=== PATIENT | female | born 1995 | race Hispanic/Latino ===

== ENCOUNTER 2018-07-31 18:58 | Emergency (ER) | payer MEDICAID ==
[2018-07-31] MEDS ORDERED: SODIUM CHLORIDE 0.9% 1000ML 1,000 ML IV ONE (19:25)
[2018-07-31 19:30] LABS: BASOPHILS % (AUTO) 0.7 % (0.0-5.0); EOSINOPHILS % (AUTO) 2.6 % (0.0-8.0); HEMATOCRIT 45.2 % (36-48); LYMPHOCYTES % (AUTO) 15.6 % (21.0-51.0); MEAN CORPUSCULAR HGB CONC 33.3 g/dL (32.0-36.0); MONOCYTES % (AUTO) 2.7 % (3.0-13.0); NEUTROPHILS % (AUTO) 78.4 % (40.0-77.0); PLATELET COUNT (AUTO) 311 K/uL (130-400); RED BLOOD CELL COUNT(AUTO) 5.02 MIL/uL (4.00-5.50); RED CELL DISTRIBUTION WIDTH 13.4 % (11.0-15.5); WHITE BLOOD COUNT (AUTO) 17.6 K/uL (4.8-10.8)
[2018-07-31 20:45] LABS: APPEARANCE,URINE Turbid (CLEAR); BILIRUBIN,URINE Negative (NEGATIVE); COLOR,URINE Yellow (YELLOW); GLUCOSE, URINE (UA) Negative (NEGATIVE); KETONES,URINE Negative (NEGATIVE); LEUKOCYTE ESTERASE ,URINE Negative (NEGATIVE); NITRATE,URINE Negative (NEGATIVE); OCCULT BLOOD,URINE Large (NEGATIVE); PH,URINE 8.5 (5.0-8.0); PROTEIN,URINE Negative (NEGATIVE); UROBILINOGEN,URINE 0.2 mg/dL (0.2-1.0)
[2018-07-31 21:24] LABS: AMORPHOUS SEDIMENT,UR Moderate /LPF (None Seen); BACTERIA,URINE Few /HPF (None Seen); RBC,URINE None Seen /HPF (0-1); SQUAMOUS EPITHELIAL CELL,UR None Seen /HPF (0-2); WBC,URINE 0-1 /HPF (0-1)
== END 2018-07-31 21:08 | disposition home or self-care (01) ==
LOC: EDH 18:58
DX: O20.0 Threatened abortion (principal); Z3A.01 Less than 8 weeks gestation of pregnancy
CPT/HCPCS: 36415; 76817; 81001; 84702; 85025; 99284; J7030

== ENCOUNTER 2018-10-09 13:02 | Emergency (ER) | payer MEDICAID ==
[2018-10-09] MEDS ORDERED: ACETAMINOPHEN 325 MG TAB ONE (14:17)
[2018-10-09 15:24] LABS: APPEARANCE,URINE Cloudy (CLEAR); BILIRUBIN,URINE Negative (NEGATIVE); COLOR,URINE Yellow (YELLOW); GLUCOSE, URINE (UA) Negative (NEGATIVE); KETONES,URINE >=80 mg/dL (NEGATIVE); LEUKOCYTE ESTERASE ,URINE Moderate (NEGATIVE); NITRATE,URINE Negative (NEGATIVE); OCCULT BLOOD,URINE Trace (NEGATIVE); PH,URINE 5.5 (5.0-8.0); PROTEIN,URINE Negative (NEGATIVE); UROBILINOGEN,URINE 0.2 mg/dL (0.2-1.0)
[2018-10-09 15:40] LABS: BACTERIA,URINE Rare /HPF (None Seen); MUCUS,URINE Moderate LPF (None Seen)
== END 2018-10-09 15:41 | disposition home or self-care (01) ==
LOC: EDH 13:02
DX: O23.42 Unspecified infection of urinary tract in pregnancy, second trimester (principal); R10.2 Pelvic and perineal pain; Z3A.17 17 weeks gestation of pregnancy
CPT/HCPCS: 81001

== ENCOUNTER 2019-03-12 10:59 | Inpatient (IN) | payer MEDICAID | END 2019-03-15 14:10 | disposition home or self-care (01) | LOC: LDH 10:59 → WSH 03-13 09:21 | PROC: 10E0XZZ Delivery of Products of Conception, External Approach (ICD-10-PCS; principal; ~2019-03-12) | DX: O80 Encounter for full-term uncomplicated delivery (principal); Z37.0 Single live birth; Z3A.00 Weeks of gestation of pregnancy not specified ==

== ENCOUNTER 2019-09-14 17:06 | Emergency (ER) | payer MEDICAID ==
[2019-09-14] MEDS ORDERED: SODIUM CHLORIDE 0.9% 1000ML 1,000 ML IV ONE (17:33)
[2019-09-14 17:42] LABS: BASOPHILS % (AUTO) 0.3 % (0.0-5.0); HEMATOCRIT 38.9 % (36-48); LYMPHOCYTES % (AUTO) 19.3 % (21.0-51.0); MEAN CORPUSCULAR HEMOGLOBIN 29.6 pg (27.0-33.0); MEAN CORPUSCULAR HGB CONC 34.4 g/dL (32.0-36.0); MEAN CORPUSCULAR VOLUME 86.1 fL (79-99); NEUTROPHILS % (AUTO) 72.9 % (40.0-77.0); PLATELET COUNT (AUTO) 302 K/uL (130-400); RED BLOOD CELL COUNT(AUTO) 4.52 MIL/uL (4.00-5.50); RED CELL DISTRIBUTION WIDTH 12.6 % (11.0-15.5); WHITE BLOOD COUNT (AUTO) 14.9 K/uL (4.8-10.8)
[2019-09-14 17:44] LABS: APPEARANCE,URINE Clear (CLEAR); BILIRUBIN,URINE Negative (NEGATIVE); COLOR,URINE Yellow (YELLOW); GLUCOSE, URINE (UA) Negative (NEGATIVE); KETONES,URINE Negative (NEGATIVE); LEUKOCYTE ESTERASE ,URINE Trace (NEGATIVE); NITRATE,URINE Negative (NEGATIVE); OCCULT BLOOD,URINE Moderate (NEGATIVE); PROTEIN,URINE Negative (NEGATIVE); UROBILINOGEN,URINE 0.2 mg/dL (0.2-1.0)
[2019-09-14 17:54] LABS: CREATININE 0.6 mg/dL (0.5-1.5); POTASSIUM 3.4 mmol/L (3.5-5.1)
[2019-09-14 17:54] LABS: BACTERIA,URINE Few /HPF (None Seen); RBC,URINE 0-1 /HPF (0-1); WBC,URINE 0-1 /HPF (0-1)
[2019-09-14 18:20] LABS: ALBUMIN 3.6 g/dL (3.5-5.0); BILIRUBIN,TOTAL 0.3 mg/dL (0.2-1.0); TOTAL PROTEIN, SERUM 7.7 g/dL (6.0-8.3)
== END 2019-09-14 19:31 | disposition home or self-care (01) ==
LOC: EDH 17:06
DX: O20.0 Threatened abortion (principal); Z3A.01 Less than 8 weeks gestation of pregnancy
CPT/HCPCS: 36415; 76817; 80053; 81001; 84702; 85025; 86900; 86901; 99284; J7030

== ENCOUNTER 2019-10-11 21:09 | Emergency (ER) | payer MEDICAID ==
[2019-10-11] MEDS ORDERED: ACETAMINOPHEN 325 MG TAB ONE (21:20)
== END 2019-10-11 21:49 | disposition home or self-care (01) ==
LOC: EDH 21:09
DX: O99.511 Diseases of the respiratory system complicating pregnancy, first trimester (principal); J11.1 Influenza due to unidentified influenza virus with other respiratory manifestations; Z3A.11 11 weeks gestation of pregnancy

== ENCOUNTER 2019-12-06 08:15 | Observation (INO) | payer MEDICAID ==
[~2019-12-06] VITALS: Ht 157.5 cm; Wt 78.0 kg
[2019-12-06 09:24] LABS: APPEARANCE,URINE TURBID (CLEAR); BILIRUBIN,URINE NEGATIVE (NEGATIVE); COLOR,URINE ORANGE (YELLOW); GLUCOSE, URINE (UA) NEGATIVE (NEGATIVE); KETONES,URINE NEGATIVE (NEGATIVE); LEUKOCYTE ESTERASE ,URINE LARGE (NEGATIVE); NITRATE,URINE NEGATIVE (NEGATIVE); OCCULT BLOOD,URINE LARGE (NEGATIVE); PH,URINE 6.5 (5.0-8.0); PROTEIN,URINE >=300 mg/dL (NEGATIVE); UROBILINOGEN,URINE 0.2 mg/dL (0.2-1.0)
[2019-12-06 09:38] LABS: RBC,URINE TNTC /HPF (0-1); WBC,URINE TNTC /HPF (0-1)
[2019-12-06 09:39] LABS: BACTERIA,URINE Many /HPF (None Seen); SQUAMOUS EPITHELIAL CELL,UR Moderate /HPF (0-2); TRANSITIONAL EPI CELLS,URINE Few /HPF (None Seen)
[2019-12-06] MEDS ORDERED: MORPHINE SULFATE 4 MG/1ML SYG ONE (10:01)
[2019-12-06] MEDS ORDERED: ONDANSETRON HCL 4 MG/2 ML VIAL ONE (10:01)
[2019-12-06 10:14] LABS: BASOPHILS % (AUTO) 0.3 % (0.0-5.0); EOSINOPHILS % (AUTO) 1.2 % (0.0-8.0); HEMATOCRIT 34.7 % (36-48); MEAN CORPUSCULAR HEMOGLOBIN 29.9 pg (27.0-33.0); MEAN CORPUSCULAR HGB CONC 34.6 g/dL (32.0-36.0); MEAN CORPUSCULAR VOLUME 86.5 fL (79-99); MONOCYTES % (AUTO) 4.6 % (3.0-13.0); NEUTROPHILS % (AUTO) 81.3 % (40.0-77.0); PLATELET COUNT (AUTO) 279 K/uL (130-400); RED BLOOD CELL COUNT(AUTO) 4.01 MIL/uL (4.00-5.50); RED CELL DISTRIBUTION WIDTH 12.5 % (11.0-15.5); WHITE BLOOD COUNT (AUTO) 18.7 K/uL (4.8-10.8)
[2019-12-06 10:21] LABS: CREATININE 0.5 mg/dL (0.5-1.5); POTASSIUM 3.2 mmol/L (3.5-5.1)
[2019-12-06 10:48] LABS: ALBUMIN 2.7 g/dL (3.5-5.0); BILIRUBIN,TOTAL 0.2 mg/dL (0.2-1.0); TOTAL PROTEIN, SERUM 6.5 g/dL (6.0-8.3)
[2019-12-06] MEDS ORDERED: CEFTRIAXONE SODIUM 1 GM ONE (11:28)
[2019-12-06] MEDS ORDERED: AMPICILLIN 2GM+NS 100ML 100 ML IV SCH (12:45)
[2019-12-06] MEDS: MEPERIDINE-PF 50 MG/ML SYG IVP PRN (12:54)
[2019-12-06] MEDS: PROMETHAZINE HCL 25 MG/ML 1ML AMPULE IM PRN (12:54)
[2019-12-06 15:37] LABS: RAPID PLASMA REAGIN NONREACTIVE (NONREACTIVE)
[2019-12-06] MEDS: AMPICILLIN 1GM+NS 50ML 50 ML IV SCH (21:00)
[2019-12-07] MEDS: AMPICILLIN 1GM+NS 50ML 50 ML IV SCH ×2 (01:05→04:54)
[2019-12-07] MEDS: LACTATED RINGERS 1000ML 1,000 ML IV PRN ×2 (04:54→15:31)
[2019-12-07] MEDS: MEPERIDINE-PF 50 MG/ML SYG IVP PRN (05:04)
[2019-12-07] MEDS: PROMETHAZINE HCL 25 MG/ML 1ML AMPULE IM PRN (05:04)
[2019-12-07] MEDS ORDERED: METHYLERGONOVINE MALEATE 0.2 MG/1 ML ML ONE ×2 (07:32→15:00)
[2019-12-07] MEDS ORDERED: OXYTOCIN-LR 20 UNITS/1000 ML 1,000 ML IV ONE (07:32)
[2019-12-07] MEDS ORDERED: MISOPROSTOL 200 MCG TABLET ONE (07:32)
[2019-12-07] MEDS ORDERED: ACETAMINOPHEN 325 MG TAB PO PRN (08:15)
[2019-12-07] MEDS ORDERED: ACETAMINOPHEN-CODEINE 300/30MG TAB PO PRN (08:15)
[2019-12-07] MEDS ORDERED: BENZOCAINE/LANOLIN/ALOE VERA 60 ML AEROSOL TP PRN (08:15)
[2019-12-07] MEDS ORDERED: WITCH HAZEL 1 PAD TP PRN (08:15)
[2019-12-07] MEDS ORDERED: OXYTOCIN-LR 20 UNITS/1000 ML 1,000 ML IV SCH (08:15)
[2019-12-07] MEDS ORDERED: DOCUSATE SODIUM 100 MG CAP PO SCH (09:00)
[2019-12-07] MEDS: IBUPROFEN 600 MG TABLET PO PRN ×2 (10:30→20:25)
[2019-12-07 11:30] LABS: HEMATOCRIT 24.9 % (36-48)
[2019-12-07] MEDS ORDERED: METHYLERGONOVINE MALEATE 0.2 MG/1 ML ML IM SCH (15:00)
[2019-12-07 19:15] VITALS: BP 90/56
[2019-12-07] MEDS ORDERED: PNV11TAB5 PO (19:44)
--- NOTE | 2019-12-07 20:00 | NUR ---
safety Assisted patient to BR. Patient walking without any assistance. Ambulatory gait normal. C/O PEACE
--- NOTE | 2019-12-07 20:25 | NUR ---
comfort Motrin 600mg PO given. See MAR
--- NOTE | 2019-12-07 23:00 | NUR ---
elimination Patient up to BR and had Bowel Movement
[2019-12-07 23:49] VITALS: BP 98/56
[2019-12-08 04:00] VITALS: BP 84/53
[2019-12-08 06:44] LABS: BASOPHILS % (AUTO) 0.2 % (0.0-5.0); EOSINOPHILS % (AUTO) 2.1 % (0.0-8.0); HEMATOCRIT 22.5 % (36-48); MEAN CORPUSCULAR HEMOGLOBIN 30.1 pg (27.0-33.0); MEAN CORPUSCULAR HGB CONC 33.3 g/dL (32.0-36.0); MEAN CORPUSCULAR VOLUME 90.4 fL (79-99); MONOCYTES % (AUTO) 3.6 % (3.0-13.0); NEUTROPHILS % (AUTO) 70.5 % (40.0-77.0); PLATELET COUNT (AUTO) 215 K/uL (130-400); RED BLOOD CELL COUNT(AUTO) 2.49 MIL/uL (4.00-5.50); RED CELL DISTRIBUTION WIDTH 12.8 % (11.0-15.5); WHITE BLOOD COUNT (AUTO) 12.6 K/uL (4.8-10.8)
[2019-12-08 08:00] VITALS: BP 96/51
[2019-12-10 10:10] LABS: HEPATITIS Bs ANTIGEN SCREEN P Negative (Negative)
== END 2019-12-08 10:25 | disposition home or self-care (01) ==
LOC: EDH 08:15 → LDH 08:16 → WSH 12-07 15:26
PROVIDERS: ADMIT Obstetrics & Gynecology; ATTEND Obstetrics & Gynecology
DX: O20.0 Threatened abortion (principal); Z3A.19 19 weeks gestation of pregnancy
CPT/HCPCS: 36415 ×3; 76805; 80053; 81001; 84702; 85014; 85018; 85025 ×2; 86592; 86701; 86850; 86900; 86901; 87070 ×2; 87076 ×2; 87088; 87340; 87390; 96365; 96366 ×2; 96372 ×2; 96375; 96376; 99284; G0378 ×17; J0290 ×5; J0696; J2175 ×3; J2210; J2270; J2405; J2550 ×3; J2590 ×2; J7120 ×3

== ENCOUNTER 2020-02-27 19:33 | Emergency (ER) | payer MEDICAID ==
[~2020-02-27 19:33] MED LIST: PNV11TAB5 PO
[2020-02-27 20:06] LABS: BASOPHILS % (AUTO) 0.3 % (0.0-5.0); EOSINOPHILS % (AUTO) 2.6 % (0.0-8.0); HEMATOCRIT 38.4 % (36-48); LYMPHOCYTES % (AUTO) 26.2 % (21.0-51.0); MEAN CORPUSCULAR HGB CONC 32.6 g/dL (32.0-36.0); MEAN CORPUSCULAR VOLUME 76.6 fL (79-99); MONOCYTES % (AUTO) 5.6 % (3.0-13.0); NEUTROPHILS % (AUTO) 64.8 % (40.0-77.0); PLATELET COUNT (AUTO) 341 K/uL (130-400); RED BLOOD CELL COUNT(AUTO) 5.01 MIL/uL (4.00-5.50); RED CELL DISTRIBUTION WIDTH 15.2 % (11.0-15.5); WHITE BLOOD COUNT (AUTO) 13.1 K/uL (4.8-10.8)
[2020-02-27 20:12] LABS: APPEARANCE,URINE Clear (CLEAR); BILIRUBIN,URINE Negative (NEGATIVE); COLOR,URINE Yellow (YELLOW); GLUCOSE, URINE (UA) Negative (NEGATIVE); KETONES,URINE Negative (NEGATIVE); LEUKOCYTE ESTERASE ,URINE Moderate (NEGATIVE); NITRATE,URINE Negative (NEGATIVE); OCCULT BLOOD,URINE Negative (NEGATIVE); PROTEIN,URINE Negative (NEGATIVE)
[2020-02-27 20:16] LABS: HCG,QUAL RESULT NEGATIVE (NEGATIVE)
[2020-02-27 20:23] LABS: CREATININE 0.7 mg/dL (0.5-1.5); POTASSIUM 3.8 mmol/L (3.5-5.1)
[2020-02-27 20:28] LABS: BILIRUBIN,TOTAL 0.2 mg/dL (0.2-1.0); TOTAL PROTEIN, SERUM 7.8 g/dL (6.0-8.3)
[2020-02-27 20:37] LABS: BACTERIA,URINE Few /HPF (None Seen); RBC,URINE None Seen /HPF (0-1)
[2020-02-27] MEDS ORDERED: FAMOTIDINE/PF 20 MG/2 ML VIAL IV ONE (20:38)
[2020-02-27] MEDS ORDERED: ACETAMINOPHEN EXTRA STRENGTH 500 MG TABLET ONE (20:38)
[2020-02-27] MEDS ORDERED: ONDANSETRON HCL 4 MG/2 ML VIAL ONE (20:38)
[2020-02-27] MEDS ORDERED: CEFTRIAXONE SODIUM 1 GM ONE (21:01)
[2020-02-27] MEDS ORDERED: KETOROLAC TROMETHAMINE 30MG/ML ONE (22:06)
== END 2020-02-27 23:39 | disposition home or self-care (01) ==
LOC: EDH 19:33
DX: N39.0 Urinary tract infection, site not specified (principal); R10.2 Pelvic and perineal pain; R18.8 Other ascites
CPT/HCPCS: 36415; 74176; 76856; 80053; 81001; 81025; 83690; 85025; 87088; 96374; 96375; 99285; J0696; J1885; J2405; J3490

== ENCOUNTER 2021-02-23 11:47 | Observation (INO) | payer MEDICAID ==
[~2021-02-23] VITALS: Ht 154.9 cm; Wt 81.6 kg
[2021-02-23 12:47] LABS: APPEARANCE,URINE Clear (CLEAR); BILIRUBIN,URINE Negative (NEGATIVE); COLOR,URINE Yellow (YELLOW); GLUCOSE, URINE (UA) Negative (NEGATIVE); KETONES,URINE Negative (NEGATIVE); LEUKOCYTE ESTERASE ,URINE Large (NEGATIVE); NITRATE,URINE Negative (NEGATIVE); OCCULT BLOOD,URINE Trace (NEGATIVE); PROTEIN,URINE Negative (NEGATIVE); UROBILINOGEN,URINE 0.2 mg/dL (0.2-1.0)
[2021-02-23 13:08] LABS: BACTERIA,URINE Moderate /HPF (None Seen); MUCUS,URINE Many LPF (None Seen); RBC,URINE 0-1 /HPF (0-1)
[2021-02-23] MEDS ORDERED: PROMETHAZINE HCL 25 MG/ML 1ML AMPULE IM ONE (14:00)
[2021-02-23 14:40] LABS: BASOPHILS % (AUTO) 0.3 % (0.0-5.0); EOSINOPHILS % (AUTO) 0.6 % (0.0-8.0); HEMATOCRIT 36.9 % (36-48); LYMPHOCYTES % (AUTO) 7.6 % (21.0-51.0); MEAN CORPUSCULAR HEMOGLOBIN 29.6 pg (27.0-33.0); MEAN CORPUSCULAR HGB CONC 34.1 g/dL (32.0-36.0); MEAN CORPUSCULAR VOLUME 86.6 fL (79-99); MONOCYTES % (AUTO) 3.3 % (3.0-13.0); NEUTROPHILS % (AUTO) 87.6 % (40.0-77.0); PLATELET COUNT (AUTO) 297 K/uL (130-400); RED BLOOD CELL COUNT(AUTO) 4.26 MIL/uL (4.00-5.50); RED CELL DISTRIBUTION WIDTH 13.4 % (11.0-15.5)
[2021-02-23 14:51] LABS: CREATININE 0.4 mg/dL (0.5-1.5); POTASSIUM 3.8 mmol/L (3.5-5.1)
[2021-02-23 14:55] LABS: ALBUMIN 2.9 g/dL (3.5-5.0); BILIRUBIN,TOTAL 0.3 mg/dL (0.2-1.0)
== END 2021-02-23 16:00 | disposition home or self-care (01) ==
LOC: EDH 11:47 → LDH 11:48
PROVIDERS: ADMIT Obstetrics & Gynecology; ATTEND Obstetrics & Gynecology
DX: O21.2 Late vomiting of pregnancy (principal); Z20.822 Contact with and (suspected) exposure to COVID-19; O26.892 Other specified pregnancy related conditions, second trimester; R10.13 Epigastric pain; Z3A.26 26 weeks gestation of pregnancy
CPT/HCPCS: 36415 ×2; 59025; 76705; 80053; 81001; 82150; 83690; 85025; 87077; 87088; 87186; 87635; G0378 ×4; 96372

== ENCOUNTER 2021-03-27 13:51 | Observation (INO) | payer MEDICAID ==
[~2021-03-27] VITALS: Ht 152.4 cm; Wt 83.5 kg
[2021-03-27 14:32] LABS: APPEARANCE,URINE Clear (CLEAR); BILIRUBIN,URINE Negative (NEGATIVE); COLOR,URINE Yellow (YELLOW); GLUCOSE, URINE (UA) Negative (NEGATIVE); KETONES,URINE Negative (NEGATIVE); LEUKOCYTE ESTERASE ,URINE Large (NEGATIVE); NITRATE,URINE Negative (NEGATIVE); OCCULT BLOOD,URINE Negative (NEGATIVE); PH,URINE 6.5 (5.0-8.0); PROTEIN,URINE Negative (NEGATIVE); UROBILINOGEN,URINE 0.2 mg/dL (0.2-1.0)
[2021-03-27 14:57] VITALS: BP 116/68
[2021-03-27 15:11] LABS: BACTERIA,URINE Moderate /HPF (None Seen); MUCUS,URINE Rare LPF (None Seen); SQUAMOUS EPITHELIAL CELL,UR Few /HPF (0-2)
[2021-03-27] MEDS ORDERED: FLUCONAZOLE 100 MG TAB PO SCH (15:30)
== END 2021-03-27 16:00 | disposition home or self-care (01) ==
LOC: EDH 13:51 → LDH 13:52
PROVIDERS: ADMIT Obstetrics & Gynecology; ATTEND Obstetrics & Gynecology
DX: O26.893 Other specified pregnancy related conditions, third trimester (principal); N89.8 Other specified noninflammatory disorders of vagina; O60.03 Preterm labor without delivery, third trimester; O62.9 Abnormality of forces of labor, unspecified; Z79.899 Other long term (current) drug therapy; Z3A.30 30 weeks gestation of pregnancy
CPT/HCPCS: 59025; 81001; 87088; G0378 ×2; G0379

== ENCOUNTER 2021-04-19 20:18 | Observation (INO) | payer MEDICAID ==
[~2021-04-19] VITALS: Ht 160 cm; Wt 82.6 kg
[2021-04-19 20:47] LABS: APPEARANCE,URINE Turbid (CLEAR); BILIRUBIN,URINE Negative (NEGATIVE); COLOR,URINE Yellow (YELLOW); GLUCOSE, URINE (UA) Negative (NEGATIVE); KETONES,URINE Negative (NEGATIVE); LEUKOCYTE ESTERASE ,URINE Moderate (NEGATIVE); NITRATE,URINE Negative (NEGATIVE); OCCULT BLOOD,URINE Negative (NEGATIVE); PH,URINE 6.5 (5.0-8.0); PROTEIN,URINE Negative (NEGATIVE)
[2021-04-19 20:55] LABS: AMPHET/METH SCREEN,URINE NEGATIVE (NEGATIVE); BARBITURATE SCREEN, URINE NEGATIVE (NEGATIVE); BENZODIAZEPINES SCREEN,URINE NEGATIVE (NEGATIVE); CANNABINOID SCREEN,URINE NEGATIVE (NEGATIVE); COCAINE SCREEN,URINE NEGATIVE (NEGATIVE); OPIATE SCREEN,URINE NEGATIVE (NEGATIVE); PHENCYCLIDINE SCREEN,URINE NEGATIVE (NEGATIVE)
[2021-04-19 20:59] LABS: AMORPHOUS SEDIMENT,UR Many /LPF (None Seen); BACTERIA,URINE Few /HPF (None Seen); MUCUS,URINE Few LPF (None Seen); SQUAMOUS EPITHELIAL CELL,UR Few /HPF (0-2)
[2021-04-19 21:00] VITALS: BP 119/63
[2021-04-19] MEDS ORDERED: TERBUTALINE SULFATE VIAL 1MG/ML SQ ONE (22:13)
[2021-04-19] MEDS: TERBUTALINE SULFATE VIAL 1MG/ML SQ SCH ×2 (22:22→22:55)
[2021-04-19] MEDS ORDERED: LACTATED RINGERS 1000ML 1,000 ML IV SCH (22:30)
[2021-04-19] MEDS ORDERED: ACETAMINOPHEN 325 MG TAB ONE (22:56)
[2021-04-19] MEDS ORDERED: [UNRECOGNIZED DRUG - OTHER] PO (22:57)
[2021-04-19] MEDS ORDERED: [UNRECOGNIZED DRUG - OTHER] PO (22:59)
[2021-04-19] MEDS ORDERED: ACETAMINOPHEN 325 MG TAB PO ONE (23:00)
== END 2021-04-20 01:30 | disposition home or self-care (01) ==
LOC: EDH 20:18 → LDH 20:19
PROVIDERS: ADMIT Obstetrics & Gynecology; ATTEND Obstetrics & Gynecology
DX: O99.891 Other specified diseases and conditions complicating pregnancy (principal); M54.9 Dorsalgia, unspecified; R10.2 Pelvic and perineal pain; R10.30 Lower abdominal pain, unspecified; O62.9 Abnormality of forces of labor, unspecified; O60.03 Preterm labor without delivery, third trimester; O36.8130 Decreased fetal movements, third trimester, not applicable or unspecified; Z3A.33 33 weeks gestation of pregnancy; Z79.899 Other long term (current) drug therapy
CPT/HCPCS: 59025 ×2; 76819; 80305; 81001; 87088; 96360; 96361; 96372 ×2; G0378 ×5; G0379; J3105

== ENCOUNTER 2021-05-15 19:27 | Observation (INO) | payer MEDICAID ==
[~2021-05-15] VITALS: Ht 160 cm; Wt 85.7 kg
[~2021-05-15 19:27] MED LIST changes: +[UNRECOGNIZED DRUG - OTHER] PO
[2021-05-15 19:28] VITALS: BP 134/69
[2021-05-15 19:59] LABS: APPEARANCE,URINE Clear (CLEAR); BILIRUBIN,URINE Negative (NEGATIVE); COLOR,URINE Yellow (YELLOW); GLUCOSE, URINE (UA) Negative (NEGATIVE); KETONES,URINE Negative (NEGATIVE); LEUKOCYTE ESTERASE ,URINE Trace (NEGATIVE); NITRATE,URINE Negative (NEGATIVE); OCCULT BLOOD,URINE Negative (NEGATIVE); PROTEIN,URINE Negative (NEGATIVE); UROBILINOGEN,URINE 0.2 mg/dL (0.2-1.0)
[2021-05-15 20:06] LABS: BACTERIA,URINE Few /HPF (None Seen); RBC,URINE 0-1 /HPF (0-1); SQUAMOUS EPITHELIAL CELL,UR Few /HPF (0-2)
== END 2021-05-15 20:55 | disposition home or self-care (01) ==
LOC: EDH 19:27 → INTOOBSV 19:39 → LDH 19:39
PROVIDERS: ADMIT Obstetrics & Gynecology; ATTEND Obstetrics & Gynecology
DX: O62.9 Abnormality of forces of labor, unspecified (principal); O42.92 Full-term premature rupture of membranes, unspecified as to length of time between rupture and onset of labor; Z3A.37 37 weeks gestation of pregnancy
CPT/HCPCS: 59025; 81001; G0378; G0379

== ENCOUNTER 2021-05-19 18:10 | Inpatient (IN) | payer MEDICAID ==
[~2021-05-19] VITALS: Ht 157.5 cm; Wt 86.6 kg
[2021-05-19 19:20] LABS: APPEARANCE,URINE Cloudy (CLEAR); BILIRUBIN,URINE Negative (NEGATIVE); COLOR,URINE Yellow (YELLOW); GLUCOSE, URINE (UA) Negative (NEGATIVE); KETONES,URINE Negative (NEGATIVE); LEUKOCYTE ESTERASE ,URINE Small (NEGATIVE); NITRATE,URINE Negative (NEGATIVE); OCCULT BLOOD,URINE Negative (NEGATIVE); PROTEIN,URINE Negative (NEGATIVE); UROBILINOGEN,URINE 0.2 mg/dL (0.2-1.0)
[2021-05-19] MEDS ORDERED: OXYTOCIN-LR 20 UNITS/1000 ML 1,000 ML IV SCH (19:30)
[2021-05-19 19:33] LABS: BACTERIA,URINE Few /HPF (None Seen); MUCUS,URINE Moderate LPF (None Seen); SQUAMOUS EPITHELIAL CELL,UR Rare /HPF (0-2)
[2021-05-19 19:35] LABS: HEMATOCRIT 34.5 % (36-48); MEAN CORPUSCULAR HEMOGLOBIN 25.9 pg (27.0-33.0); MEAN CORPUSCULAR HGB CONC 32.5 g/dL (32.0-36.0); MEAN CORPUSCULAR VOLUME 79.9 fL (79-99); RED BLOOD CELL COUNT(AUTO) 4.32 MIL/uL (4.00-5.50); RED CELL DISTRIBUTION WIDTH 14.4 % (11.0-15.5); WHITE BLOOD COUNT (AUTO) 15.2 K/uL (4.8-10.8)
[2021-05-19] MEDS ORDERED: PREN-196 PO (19:35)
[2021-05-19] MEDS: PROMETHAZINE HCL 25 MG/ML 1ML AMPULE IM PRN (19:52)
[2021-05-19] MEDS: MEPERIDINE-PF 50 MG/ML SYG IVP PRN (19:53)
[2021-05-19] MEDS: LACTATED RINGERS 1000ML 1,000 ML IV PRN (20:03)
[2021-05-19] MEDS ORDERED: CITRIC ACID/SODIUM CITRATE 30 ML UDCUP PO SCH (22:30)
[2021-05-20] MEDS: PROMETHAZINE HCL 25 MG/ML 1ML AMPULE IM PRN ×2 (02:30→22:04)
[2021-05-20] MEDS: MEPERIDINE-PF 50 MG/ML SYG IVP PRN ×2 (02:33→22:05)
[2021-05-20] MEDS: LACTATED RINGERS 1000ML 1,000 ML IV PRN ×3 (04:57→21:19)
[2021-05-20] MEDS ORDERED: EPHEDRINE SULFATE 50 MG/ML AMPULE IVP PRN (09:30)
[2021-05-20] MEDS ORDERED: LACTATED RINGERS 500 ML 500 ML IV PRN (09:30)
[2021-05-20] MEDS ORDERED: AMPICILLIN 2GM+NS 100ML 100 ML IV SCH (09:30)
[2021-05-20] MEDS ORDERED: NALOXONE HCL 0.4 MG/1 ML ML IV PRN (09:30)
[2021-05-20] MEDS: OXYTOCIN-LR 20 UNITS/1000 ML 1,000 ML IV SCH (09:40)
[2021-05-20] MEDS: AMPICILLIN 1GM+NS 50ML 50 ML IV SCH (21:44)
[2021-05-20] MEDS ORDERED: CITRIC ACID/SODIUM CITRATE 30 ML UDCUP PO SCH (23:00)
[2021-05-21] MEDS: AMPICILLIN 1GM+NS 50ML 50 ML IV SCH ×3 (01:40→09:57)
[2021-05-21] MEDS: LACTATED RINGERS 1000ML 1,000 ML IV PRN (02:27)
[2021-05-21 08:14] LABS: HEPATITIS Bs ANTIGEN SCREEN P Negative (Negative)
[2021-05-21] MEDS ORDERED: FENTANYL CITRATE PF 50 MCG/1 ML 2ML VIAL ONE (08:59)
[2021-05-21] MEDS ORDERED: MISOPROSTOL 200 MCG TABLET ONE (12:43)
[2021-05-21] MEDS ORDERED: METHYLERGONOVINE MALEATE 0.2 MG/1 ML ML ONE (12:43)
[2021-05-21] MEDS ORDERED: LIDOCAINE HCL 1% 20 ML VIAL ONE (12:53)
[2021-05-21] MEDS: OXYTOCIN-LR 20 UNITS/1000 ML 1,000 ML IV SCH (13:21)
[2021-05-21] MEDS: IBUPROFEN 600 MG TABLET PO PRN ×2 (13:22→20:20)
[2021-05-21] MEDS ORDERED: WITCH HAZEL 1 PAD TP PRN (13:30)
[2021-05-21] MEDS ORDERED: BENZOCAINE/LANOLIN/ALOE VERA 60 ML AEROSOL TP PRN (13:30)
[2021-05-21] MEDS ORDERED: ACETAMINOPHEN 325 MG TAB PO PRN (13:30)
[2021-05-21] MEDS ORDERED: LANOLIN 30GM OINTMENT TP PRN (13:30)
[2021-05-21] MEDS ORDERED: ACETAMINOPHEN WITH CODEINE 1 TAB TAB PO PRN (13:30)
[2021-05-21] MEDS ORDERED: OXYTOCIN-LR 20 UNITS/1000 ML 1,000 ML IV SCH (13:30)
[2021-05-21] MEDS ORDERED: LIDOCAINE HCL 1% 20 ML VIAL INJ SCH (13:30)
[2021-05-21] MEDS ORDERED: MISOPROSTOL 25 MCG TABLET PR PRN (13:30)
[2021-05-21] MEDS ORDERED: MEASLES/MUMPS/RUBELLA VACCINE, LIVE 0.5 ML/VIAL SQ PRN (13:30)
[2021-05-21] MEDS ORDERED: DIPH,PERTUSS(ACELL),TET VAC/PF 0.5 ML VIAL IM PRN (13:30)
[2021-05-21 15:48] VITALS: BP 112/66
[2021-05-21 19:15] VITALS: BP 120/74
[2021-05-21] MEDS: DOCUSATE SODIUM 100 MG CAP PO SCH (20:21)
[2021-05-22 00:05] VITALS: BP 124/79
[2021-05-22 04:00] VITALS: BP 100/54
[2021-05-22 07:15] LABS: HEMATOCRIT 28.9 % (36-48); MEAN CORPUSCULAR HEMOGLOBIN 25.8 pg (27.0-33.0); MEAN CORPUSCULAR HGB CONC 32.2 g/dL (32.0-36.0); MEAN CORPUSCULAR VOLUME 80.1 fL (79-99); RED BLOOD CELL COUNT(AUTO) 3.61 MIL/uL (4.00-5.50); RED CELL DISTRIBUTION WIDTH 14.6 % (11.0-15.5)
[2021-05-22] MEDS: DOCUSATE SODIUM 100 MG CAP PO SCH (09:16)
[2021-05-22 09:30] VITALS: BP 119/78
[2021-05-22] MEDS ORDERED: IBUP-2077 PO (09:59)
== END 2021-05-22 14:25 | disposition home or self-care (01) | DRG 560 ==
LOC: EDH 18:10 → LDH 18:11 → OBSVTOIN 18:11 → EDH 18:25 → WSH 05-21 15:20
PROVIDERS: ADMIT Obstetrics & Gynecology; ATTEND Obstetrics & Gynecology
PROC: 10E0XZZ Delivery of Products of Conception, External Approach (ICD-10-PCS; principal; 2021-05-21)
PROC: 10907ZC Drainage of Amniotic Fluid, Therapeutic from Products of Conception, Via Natural or Artificial Opening (ICD-10-PCS; 2021-05-21)
PROC: 0KQM0ZZ Repair Perineum Muscle, Open Approach (ICD-10-PCS; 2021-05-21)
PROC: 3E033VJ Introduction of Other Hormone into Peripheral Vein, Percutaneous Approach (ICD-10-PCS; 2021-05-21)
PROC: 3E0R3BZ Introduction of Anesthetic Agent into Spinal Canal, Percutaneous Approach (ICD-10-PCS; 2021-05-21)
PROC: 00HU33Z Insertion of Infusion Device into Spinal Canal, Percutaneous Approach (ICD-10-PCS; 2021-05-21)
DX: O98.82 Other maternal infectious and parasitic diseases complicating childbirth (principal); B95.1 Streptococcus, group B, as the cause of diseases classified elsewhere; D64.9 Anemia, unspecified; O69.1XX0 Labor and delivery complicated by cord around neck, with compression, not applicable or unspecified; O99.02 Anemia complicating childbirth; O70.1 Second degree perineal laceration during delivery; O99.824 Streptococcus B carrier state complicating childbirth; Z37.0 Single live birth; Z3A.38 38 weeks gestation of pregnancy
CPT/HCPCS: 36415; 81001; 85027; 86592; 86850; 86900; 86901; 87340; 96360; 96361; A4314; A4351; G0378; J0290; J2175; J2210; J2550; J2590; J3010; J7120